=== PATIENT | male | born 1985 | race Caucasian/White ===

== ENCOUNTER 2020-02-05 09:34 | Emergency (ER) | payer SELFPAY ==
[2020-02-05 09:43] VITALS: BP 149/88; PULSE 59; RESP 12; TEMP 36.6; O2SAT 100; BMI 19.3
--- NOTE | 2020-02-05 09:47 | ED_ITS ---
HPI - Overdose General Chief Complaint: Overdose Stated Complaint: Accidental Overdose Time Seen by Provider: 02/05/20 09:46 Source: EMS Mode of arrival: EMS History of Present Illness HPI Narrative: 34-year-old male with no significant past medical history BIBA for accidental drug overdose, found in car unresponsive with girlfriend. 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 Received 2 mg of IV Narcan by EMS which induced vomiting, then received 4 mg Zofran. Patient denies SI/HI MD complaint: accidental overdose Related Data Allergies Allergy/AdvReac Type Severity Reaction Status Date / Time No Known Allergies Allergy Unverified 01/09/20 17:33 Review of Systems Review of Systems: Gastrointestinal: + Nausea, + Vomiting Psych: No Depression, No SI/HI/AH/VH, Yes all other systems are reviewed and are negative [facility] Past Medical History Attestation statement: The following information was validated with the patient. Medical History (Updated 02/05/20 @ 14:36 by YUSRA Garcia) No known health problems No known health problems Social History Social History Alcohol intake: never Smoking Status: Light tobacco smoker Smoked in Last 30 Days: Yes Use of substances other than those prescribed or required for medical reasons: Yes Substance Use Type: Heroin and Marijuana Substance Use Frequency: Occasionally Advance Directives: No Advance Directives Information Provided: No Physical Exam Vital Signs: Vital Signs: Vital Signs Temp Pulse Resp BP Pulse Ox 02/05/20 12:18 60 131/80 99 02/05/20 09:43 97.9 F 59 12 149/88 H 100 Body Mass Index 19.3 Const: Other: alert to voice General: cooperative, healthy appearing and lethargic Orientation/consciousness: lethargic Limitations: no limitations HENMT: Head: Yes normal to inspection Ears: hearing grossly normal bilaterally General nose exam: Normal external nose present Face and sinus: Yes normal facial exam Eyes: General: appearance normal, both eyes and all related structures Pupils: Equal, round and reactive pupils present and Dilated pupils bilaterally Neck: Neck: Yes normal visual inspection Resp: Effort & Inspection: normal respiratory effort GI: Inspection: Yes normal to inspection Palpation (GI): Soft to palpation, nontender, no guarding and not rigid Skin: Rashes: no rashes Wounds: no wounds Neuro: Other: MONAE Cranial nerves: Yes Equal, round and reactive pupils present Extrem: General: Yes normal to inspection Course Course Course Narrative: - patient interested in detox, volleyball assistant coach spoke to patient and he has a bed at [facility] for 10:00 p.m. - ED care transferred to YUSRA [place] pending [facility] transfer MDM - Overdose MDM Narrative Medical decision making narrative: 34-year-old male with no significant past medical history BIBA for accidental drug overdose, found in car unresponsive with girlfriend. On exam VSS, NAD, lethargic/ alert to voice, answering questions. Will observe and reassess for clinical sobriety Differential Diagnosis Differential diagnosis: Likely drug overdose Discharge Plan Discharge Clinical Impression: Drug overdose
--- NOTE | 2020-02-05 11:03 | PC.NURSE ---
Pt received from another section. sleeping on stretcher
[2020-02-05 12:18] VITALS: BP 131/80; PULSE 60; O2SAT 99
--- NOTE | 2020-02-05 12:18 | PC.NURSE ---
PT SLEEPING. AWAKENS EASILY TO VOICE
--- NOTE | 2020-02-05 12:30 | MHC.CARE ---
Addiction Consult Service note: detox Patient presented to [facility] [place] [place] ED after an accidental heroin overdose. Patient met with Nurse'S Aides Teacher and [facility] [place] [place] health facilities surveyor and initially denied using any substances however patient reported he was interested in getting into treatment / rehab. Nurse'S Aides Teacher made referral to [facility] in [place] and awaits a call back regarding bed availability and intake.
--- NOTE | 2020-02-05 15:02 | MHC.CARE ---
Addiction Consult Service note: Patient has remained calm and cooperative while in the ED. Patient continues to endorse a desire to go to detox. Patient has a bed at [facility] for 10PM. Patient completed phone intake at 1430. During phone intake, patient reported that he recently got a COVID test at [facility] but that he did not know the results. [facility] is requesting the result so that they can move forward with this admission. [facility] was not able to provide the test result. Discussed case with ED CM who ordered a rapid COVID test so that admission to [facility] can move forward. ED staff aware. Patient will be transported to [facility] at 9PM via Lyft or Taxi. CARE Team will assist with arranging transportation. [facility] is requesting that patient bring his discharge paperwork for his admission to their facility.
[2020-02-05 15:33] VITALS: BP 135/87; PULSE 88; RESP 16; O2SAT 98
[2020-02-05 16:50] LABS: SARS COV2 PCR INHOUSE NEGATIVE (Negative)
== END 2020-02-05 21:48 | disposition other institution (70) ==
PROVIDERS: Physician Assistant; Emergency Provider Emergency Medicine
DX: T40.1X1A Poisoning by heroin, accidental (unintentional), initial encounter (principal); Y92.9 Unspecified place or not applicable; F12.10 Cannabis abuse, uncomplicated; F17.200 Nicotine dependence, unspecified, uncomplicated; Z71.6 Tobacco abuse counseling; Z71.51 Drug abuse counseling and surveillance of drug abuser
CPT/HCPCS: 87635; 99285